=== PATIENT | female | born 1980 | race Caucasian/White ===

== ENCOUNTER 2022-05-06 22:17 | Emergency (ER) | payer MEDICAID, SELFPAY ==
[2022-05-06 22:30] VITALS: BP 127/80; PULSE 90; RESP 17; TEMP 36.7; O2SAT 98; BMI 31.7
--- NOTE | 2022-05-06 22:38 | W.ED.ABDPA2 ---
HPI - Abdominal Pain General: Chief Complaint: Abdominal Pain Stated Complaint: low abd pain Time Seen by Provider: 05/06/22 22:38 History of Present Illness: 42-year-old female comes in today for complaints of lower abdominal pain and discomfort. Patient reported constipation for 1 week now. Patient has had small bowel movement but no relieving stools. Patient appears in no pain. Patient appears nontoxic. Patient denies any chronic medical problems. Associated Symptoms: Reports constipation; Denies fever(s) Review of Systems Const: Denies: fever(s) GI: Reports: constipation Physical Exam Const: COMMON NORMALS: alert HENMT: COMMON NORMALS: normocephalic HEAD & SCALP: normocephalic Neck/C-Spine: COMMON NORMALS: full ROM Resp: COMMON NORMALS: normal respiratory effort and clear to auscultation bilaterally AUSCULTATION: clear to auscultation bilaterally Cardio: COMMON NORMALS: regular rate and regular rhythm RATE: regular rate RHYTHM: regular rhythm GI: COMMON NORMALS: Soft to palpation PALPATION: Yes Soft to palpation and No Tenderness to palpation present (GI) Extremity: COMMON NORMALS: normal to inspection Neuro: SENSORIUM/ORIENTATION: Yes alert Skin: COMMON NORMALS: turgor normal GENERAL SKIN EXAM: turgor normal Course Vital Signs: Vital signs: Vital Signs Temperature 98.0 F 05/06/22 22:30 Pulse Rate 90 05/06/22 22:30 Respiratory Rate 17 05/06/22 22:30 Blood Pressure 127/80 05/06/22 22:30 Pulse Oximetry 98 05/06/22 22:30 Oxygen Delivery Me thod 05/06/22 22:30 MDM - Abdominal Pain Medical Decision Making Patient came in tonight for complaints of abdominal discomfort and constipation. Patient reports no significant pain but mild distress. Patient denies any blood in vomit or stool. Patient appears nontoxic. Abdomen soft and nontender. With some hyperactive bowel sounds. Differential diagnosis includes not limited to constipation, fecal impaction, bowel obstruction. KUB did not note any signs of bowel obstruction or significant fecal impaction. Patient was given a dose of milk of magnesia in the ER was instructed use of milk of magnesia 30 mL twice a day until good results along with MiraLAX 4 doses per day. Discussed with patient that she will have very loose stools until she has completely passed on the constipation. Also discussing her dietary changes and fluid needs while doing a bowel cleanout. Then suggested follow-up with primary care for further evaluation and possible colonoscopy. Lab Data Labs/Radiology: Radiology Impressions KUB X-Ray 05/06/22 22:40 IMPRESSION: Moderate constipation without bowel dilation to indicate obstruction. Discharge Plan Discharge Patient Disposition: Home Clinical Impression: Constipation Qualifiers: Constipation type: unspecified constipation type Qualified Code(s): K59.00 - Constipation, unspecified Condition: Stable Prescriptions: New Miralax 17 gram/dose powder 17 g PO QID PRN (Reason: constipation) Qty: 510 0RF Milk of Magnesia 400 mg/5 mL suspension 30 ml PO BID PRN (Reason: constipation) Qty: 355 0RF Discharge Orders: Discharge ED (Routine); Ordered 05/06/22 Ordered By: Leo Valiente Referrals: Beena Dupree FNP [Primary Care Provider] - Discharge Diet: Usual diet Discharge Activity: Increase activity as tolerated Patient Instructions: Constipation (DC) Activity Restrictions/Additional Instructions: Continue with MiraLAX 17 g 4 times a day until good results for constipation. Use milk of magnesia 30 mL twice a day for laxative effect. Be sure to drink at least 2 L of liquids a day including an electrolyte solution while cleaning out. Eat a healthy diet with plenty of fresh fruits and vegetables and fibrous grains. Follow-up with primary care for further instructions regarding constipation. Return to ER for worsening symptoms such as severe abdominal pain, blood in vomit or stool, fever greater than 100.4, or new concerns. Coding Level of Care Code ED Emergency Room Physician Assistant for Odalis Fwd Exam Comprehensive
--- NOTE | 2022-05-06 22:40 | XRR_ITS ---
PROCEDURE INFORMATION: Exam: XR Abdomen Exam date and time: 05/06/2022 11:48 PM Age: 42 years old Clinical indication: Abdominal pain; Acute; Additional info: Constipation TECHNIQUE: Imaging protocol: Radiologic exam of the abdomen. Views: Frontal supine view of the abdomen. 1 View. COMPARISON: CR XR KUB [id number] 04/22/2022 4:32 PM FINDINGS: Gastrointestinal tract: Moderate constipation without bowel dilation to indicate obstruction. Bones/joints: Unremarkable. XR/XR KUB [id number] IMPRESSION: Moderate constipation without bowel dilation to indicate obstruction.
[2022-05-06] MEDS: magnesium hydroxide 30 mL UDC PO (23:12)
[2022-05-06 23:29] VITALS: BP 127/80; PULSE 90; RESP 17; TEMP 36.7; O2SAT 98
== END 2022-05-06 23:29 | disposition home or self-care (01) ==
PROVIDERS: Emergency Provider Nurse Practitioner Family; PCP Nurse Practitioner Family
DX: K59.00 Constipation, unspecified (principal)
CPT/HCPCS: 74018; 99283

== ENCOUNTER → 2023-07-21 09:49 | Outpatient (BNVA) | payer BC, MEDICAID, SELFPAY | PROVIDERS: PCP Nurse Practitioner Family; Referring Provider Electrodiagnostic Medicine; Visit Provider Nurse Practitioner | DX: M79.641 Pain in right hand (principal); M77.11 Lateral epicondylitis, right elbow; R29.898 Other symptoms and signs involving the musculoskeletal system; R20.2 Paresthesia of skin; M77.8 Other enthesopathies, not elsewhere classified | CPT/HCPCS: 73110; 73130 ==

== ENCOUNTER 2024-01-23 19:46 | Emergency (ER) | payer BC, MEDICAID, SELFPAY ==
--- NOTE | 2024-01-23 19:47 | ECG_ITS ---
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 Measurements Intervals [place] Rate: 75 P: 53 MI: 127 QRS: -55 QRSD: 102 T: 62 QT: 381 QTc: 426 Interpretive Statements SINUS RHYTHM INCOMPLETE RIGHT BUNDLE BRANCH BLOCK [90+ ms QRS DURATION, TERMINAL R IN V1/V2, 40+ ms S IN I/aVL/V4/V5/V6] LEFT ANTERIOR FASCICULAR BLOCK [QRS AXIS <= -45, QR IN I, RS IN II] No previous ECG available for comparison Electronically Signed On 01-24-2024 7:59:38 CDT by Luis Antonio Martinez M.D. [email or web address] ridge [facility].[email or web address]/store/[id number]
[2024-01-23 19:52] VITALS: BP 150/77; PULSE 83; RESP 16; TEMP 36.7; O2SAT 100; BMI 31.1
--- NOTE | 2024-01-23 22:04 | ECG_ITS ---
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 Measurements Intervals [place] Rate: 65 P: 53 MD: 144 QRS: -16 QRSD: 94 T: 58 QT: 409 QTc: 428 Interpretive Statements SINUS RHYTHM INCOMPLETE RIGHT BUNDLE BRANCH BLOCK [90+ ms QRS DURATION, TERMINAL R IN V1/V2, 40+ ms S IN I/aVL/V4/V5/V6] Compared to ECG 01/23/2024 19:47:26 Left anterior fascicular block no longer present Electronically Signed On 01-24-2024 7:59:26 CDT by Luis Antonio Martinez M.D. [id number]
--- NOTE | 2024-01-23 22:04 | XRR_ITS ---
PROCEDURE INFORMATION: Exam: XR Chest Exam date and time: 01/23/2024 10:07 PM Age: 43 years old Clinical indication: Chest pressure; Patient HX: Chest pain; Left arm pain TECHNIQUE: Imaging protocol: Radiologic exam of the chest. Views: 1 view. COMPARISON: CR XR KUB [id number] 05/06/2022 11:48 PM FINDINGS: Lungs: The lungs are adequately expanded. No focal consolidations or pulmonary edema. Pleural spaces: No pleural effusions or pneumothorax. Heart/Mediastinum: No cardiomegaly. Bones/joints: No acute fractures. XR/XR chest 1V portable [id number] IMPRESSION: No acute pulmonary disease.
[2024-01-23 22:19] LABS: Basophils % 0.4 %; Eosinophils # 0.2 10^3/uL (0.0-0.8); Eosinophils % 2.1 %; Hematocrit 39.8 % (36-47); Lymphocytes # 1.7 10^3/uL (0.8-4.8); Lymphocytes % 20.8 %; Mean Corpuscular HGB Conc 32.9 g/dL (30-55); Mean Corpuscular Hemoglobin 29.2 pg (27-33); Mean Corpuscular Volume 88.8 fl (85-98); Mean Platelet Volume 9.2 fL (7.4-10.4); Monocytes # 0.6 10^3/uL (0.2-0.9); Neutrophils % 69.5 %; Nucleated Red Blood Cells % 0 %; Platelet Count 163 10^3/cmm (157-399); Red Blood Count 4.48 10^6/uL (3.85-5.65); Red Cell Distribution Width 12.6 % (12.1-15.1); White Blood Count 8.19 10^3/uL (3.29-11.43)
[2024-01-23 22:40] VITALS: BP 120/64; PULSE 68; O2SAT 96
[2024-01-23 22:46] LABS: Troponin(5th) Baseline < 6 ng/L (0-10)
[2024-01-23 22:48] LABS: Alanine Aminotransferase 14 U/L (0-33); Albumin Level 4.6 g/dL (3.5-5.2); Alkaline Phosphatase 83 U/L (35-105); Aspartate Amino Transferase 16 U/L (0-32); Blood Urea Nitrogen 11 mg/dL (6-20); Calcium 9.2 mg/dL (8.5-10.5); Carbon Dioxide 25 mmol/L (22-29); Creatinine Clr Calc Pharmacy 96.8812; Globulin 2.4 g/dL (1.3-4.6); Glomerular Filtration Rate 91.8 mL/min (90-130); Glucose 104 mg/dL (65-115); Total Bilirubin 0.2 mg/dL (0.15-1.2)
--- NOTE | 2024-01-23 23:09 | W.ED.CHESTPA ---
HPI - Chest Pain General: Chief Complaint: Chest Pain Stated Complaint: Chest Pains\Left Arm Pain Time Seen by Provider: 01/23/24 22:22 History of Present Illness: Patient presents to the ER with complaints of left-sided intermittent sharp stabbing chest pain that travels into the left arm. This is worse when taking a big deep breath. Patient denies any shortness of breath diaphoresis nausea vomiting. Patient denies any heart problems. Related Data Previous Rx's Medication Instructions Recorded magnesium hydroxide 400 mg/5 mL 30 ml PO BID PRN constipation #355 05/06/22 oral suspension (Milk of Magnesia) mL polyethylene glycol 3350 17 17 g PO QID PRN constipation #510 05/06/22 gram/dose oral powder (Miralax) grams Tennis elbow strap #1 ea 07/21/23 celecoxib 100 mg capsule (Celebrex) 100 mg PO BID right tennis elbow 07/21/23 30 days #60 caps Allergies Allergy/AdvReac Type Severity Reaction Status Date / Time No Known Allergies Allergy Verified 10/14/23 14:33 Review of Systems General: Reports: 10 or more systems reviewed and unremarkable except in HPI and below PFSH ED PFSH: Medical History Tendinitis of right forearm Positive Tinel's sign Fall at home 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 Lateral epicondylitis of right elbow Female Reproductive History: Date of last menstrual period: 01/23/24 Physical Exam Const: COMMON NORMALS: no acute distress, average body habitus, patient oriented x3, no limitations, healthy appearing, alert and well nourished HENMT: COMMON NORMALS: normocephalic, atraumatic, hearing grossly normal bilaterally, external ears normal, Normal external nose present and moist oral mucous membranes HEAD & SCALP: normocephalic and atraumatic NOSE: Normal external nose present EXTERNAL EAR: Yes external ears normal Neck/C-Spine: COMMON NORMALS: no JVD Chest: COMMONS NORMALS: normal inspection of the chest and normal palpation of entire chest wall Resp: COMMON NORMALS: normal respiratory effort, No retractions, No use of accessory muscles and clear to auscultation bilaterally AUSCULTATION: clear to auscultation bilaterally Cardio: COMMON NORMALS: no JVD, regular rate, regular rhythm, S1 normal heart sound present, S2 normal heart sound present, No gallops present (Cardio), No clicks present (Cardio), No murmurs present (Cardio) and No rub (Cardio) RATE: regular rate RHYTHM: regular rhythm HEART SOUNDS: S1 normal heart sound present and S2 normal heart sound present GI: COMMON NORMALS: Normal to inspection, nondistended, normoactive bowel sounds present, Soft to palpation, non-tender, No hepatosplenomegaly present and no masses PALPATION: Yes Soft to palpation and Yes No hepatosplenomegaly present Neuro: COMMON NORMALS: patient oriented x3 SENSORIUM/ORIENTATION: Yes alert Course Vital Signs: Vital signs: Vital Signs Temperature 98.1 F 01/23/24 19:52 Pulse Rate 68 01/23/24 22:40 Respiratory Rate 16 01/23/24 19:52 Blood Pressure 105/63 01/23/24 23:18 Pulse Oximetry 97 01/23/24 23:18 Oxygen Delivery Me thod Room Air 01/23/24 19:52 MDM - Chest Pain Medical Decision Making Patient had lab work that included CBC CMP troponin, chest x-ray all which was benign. Patient was not in any distress and is nontoxic in appearance. His results was discussed with the patient and patient will be discharged home. Differential Diagnosis Unlikely acute massive pulmonary embolism, acute respiratory failure, acute myocardial infarction, cardiac arrest or sudden cardiac Medical Records I reviewed the patient's medical records. Lab Data I reviewed the patient's lab results. 01/23/24 21:11 01/23/24 21:11 Radiology Impressions Chest X-Ray 01/23/24 22:04 IMPRESSION: No acute pulmonary disease. Laboratory Results WBC 8.19 10^3/uL (3.29-11.43) 01/23/24 21:11 RBC 4.48 10^6/uL (3.85-5.65) 01/23/24 21:11 Hgb 13.10 g/dL (11.27-16.99) 01/23/24 21:11 Hct 39.8 % (36-47) 01/23/24 21:11 MCV 88.8 fl (85-98) 01/23/24 21:11 MCH 29.2 pg (27-33) 01/23/24 21:11 MCHC 32.9 g/dL (30-55) 01/23/24 21:11 RDW 12.6 % (12.1-15.1) 01/23/24 21:11 Plt Count 163 10^3/cmm (157-399) 01/23/24 21:11 MPV 9.2 fL (7.4-10.4) 01/23/24 21:11 Neut % (Auto) 69.5 % 01/23/24 21:11 Lymph % (Auto) 20.8 % 01/23/24 21:11 [place]ay % (Auto) 7.0 % 01/23/24 21:11 Eos % (Auto) 2.1 % 01/23/24 21:11 Baso % (Auto) 0.4 % 01/23/24 21:11 Neut # (Auto) 5.70 10^3/uL (1.8-7.7) 01/23/24 21:11 Lymph # (Auto) 1.7 10^3/uL (0.8-4.8) 01/23/24 21:11 [place]ay # (Auto) 0.6 10^3/uL (0.2-0.9) 01/23/24 21:11 Eos # (Auto) 0.2 10^3/uL (0.0-0.8) 01/23/24 21:11 Baso # (Auto) 0.0 10^3/uL (0.0-0.1) 01/23/24 21:11 Nucleated RBC % (auto) 0 % 01/23/24 21:11 Nucleated RBCs # 0.0 /100WBC 01/23/24 21:11 Sodium 142 mmol/L (136-145) 01/23/24 21:11 Potassium 4.2 mmol/L (3.5-5.1) 01/23/24 21:11 Chloride 104 mmol/L (98-107) 01/23/24 21:11 Carbon Dioxide 25 mmol/L (22-29) 01/23/24 21:11 Anion Gap 17.2 (5-19) 01/23/24 21:11 BUN 11 mg/dL (6-20) 01/23/24 21:11 Creatinine 0.7 mg/dL (0.5-0.9) 01/23/24 21:11 GFR Calculation 91.8 mL/min (90-130) 01/23/24 21:11 Glucose 104 mg/dL (65-115) 01/23/24 21:11 Calculated Osmolality 294 mOsm/kg (285-295) 01/23/24 21:11 Calcium 9.2 mg/dL (8.5-10.5) 01/23/24 21:11 Total Bilirubin 0.2 mg/dL (0.15-1.2) 01/23/24 21:11 AST 16 U/L (0-32) 01/23/24 21:11 ALT 14 U/L (0-33) 01/23/24 21:11 Alkaline Phosphatase 83 U/L (35-105) 01/23/24 21:11 Troponin T Baseline < 6 ng/L (0-10) 01/23/24 21:11 Total Protein 7.0 g/dL (6.6-8.7) 01/23/24 21:11 Albumin 4.6 g/dL (3.5-5.2) 01/23/24 21:11 Globulin 2.4 g/dL (1.3-4.6) 01/23/24 21:11 All radiology interpretation(s) finalized by discharge Discharge Plan Discharge Patient Disposition: Home Clinical Impression: Atypical chest pain Condition: Stable Prescriptions: No Action (DME) Tennis elbow strap See Rx Instructions .Route .MEDSUPPLY Qty: 1 0RF Rx Instructions: As directed celecoxib [Celebrex] 100 mg capsule 100 mg PO BID 30 Days Qty: 60 1RF Miralax 17 gram/dose powder 17 g PO QID PRN (Reason: constipation) Qty: 510 0RF Milk of Magnesia 400 mg/5 mL suspension 30 ml PO BID PRN (Reason: constipation) Qty: 355 0RF Discharge Orders: Discharge ED (Routine); Ordered 01/23/24 Ordered By: Abdelrahman Moore Referrals: Lance Ospina DO [Primary Care Provider] - 1 week Patient Instructions: Chest Pain - Noncardiac Activity Restrictions/Additional Instructions: Evaluation in the ER that included physical exam, lab work, chest x-ray, EKG did not reveal any acute coronary cause of your chest pain. Your chest pain is felt to be noncardiac in nature. Please follow-up with your family practitioner in the next 7 to 10 days for further evaluation and treatment as needed. If your chest pain changes or worsens please feel free to return to the ER. Coding Level of Care Code ED Fiberglass Insulation Installer for Odalis Hidalgo
[2024-01-23 23:18] VITALS: BP 105/63; O2SAT 97
[2024-01-23 23:47] LABS: Anion Gap 17.2 (5-19); Chloride 104 mmol/L (98-107); Osmolality Calculated 294 mOsm/kg (285-295); Potassium 4.2 mmol/L (3.5-5.1); Sodium 142 mmol/L (136-145)
--- NOTE | 2024-01-24 00:04 | ECG_ITS ---
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 Measurements Intervals [place] Rate: 69 P: 55 SC: 143 QRS: 7 QRSD: 95 T: 66 QT: 394 QTc: 422 Interpretive Statements SINUS RHYTHM INCOMPLETE RIGHT BUNDLE BRANCH BLOCK [90+ ms QRS DURATION, TERMINAL R IN V1/V2, 40+ ms S IN I/aVL/V4/V5/V6] Compared to ECG 01/23/2024 19:47:26 Left anterior fascicular block no longer present Electronically Signed On 01-24-2024 8:00:01 CDT by Luis Antonio Martinez M.D. [id number]
[2024-01-24 00:08] VITALS: BP 109/69; PULSE 72; O2SAT 99
[2024-01-24 00:12] LABS: Troponin 5 2HR Delta 0.00001 ABS# (0-10)
== END 2024-01-24 00:10 | disposition home or self-care (01) ==
PROVIDERS: Emergency Provider Emergency Medicine; PCP Electrodiagnostic Medicine
DX: R07.89 Other chest pain (principal)
CPT/HCPCS: 71045; 80053; 84484; 85025; 93005; 99285

== ENCOUNTER → 2024-04-15 15:47 | Outpatient (BNVA) | payer BC, MEDICAID, SELFPAY | PROVIDERS: PCP Electrodiagnostic Medicine; Visit Provider Nurse Practitioner Women's Health | DX: N93.9 Abnormal uterine and vaginal bleeding, unspecified (principal) | CPT/HCPCS: 82670; 83001; 83002; 84146; 84443 ==

== ENCOUNTER → 2024-05-06 11:07 | Outpatient (BNVA) | payer BC, MEDICAID, SELFPAY | PROVIDERS: PCP Electrodiagnostic Medicine; Visit Provider Nurse Practitioner Women's Health | DX: N93.9 Abnormal uterine and vaginal bleeding, unspecified (principal) | CPT/HCPCS: 76830 ==

== ENCOUNTER → 2024-09-06 10:25 | Outpatient (BNVA) | payer BC, MEDICAID, SELFPAY | PROVIDERS: PCP Electrodiagnostic Medicine; Visit Provider Obstetrics & Gynecology | DX: N93.9 Abnormal uterine and vaginal bleeding, unspecified (principal); Z01.419 Encounter for gynecological examination (general) (routine) without abnormal findings | CPT/HCPCS: 81025; 87624; 88305 ==

== ENCOUNTER 2024-09-26 15:30 | Emergency (ER) | payer BC, MEDICAID, SELFPAY ==
[2024-09-26 15:33] VITALS: BP 127/94; PULSE 107; RESP 17; TEMP 36.5; O2SAT 99; BMI 32.1
--- NOTE | 2024-09-26 15:38 | USR_ITS ---
PROCEDURE INFORMATION: Exam: US Pelvis, Transvaginal, Non-Obstetric Exam date and time: 09/26/2024 5:17 PM Age: 44 years old Clinical indication: Other: Bleeding; She has an iud; Additional info: Vaginal bleeding TECHNIQUE: Imaging protocol: Real-time transvaginal pelvic (non-obstetric) ultrasound with image documentation. Transvaginal imaging was used for better evaluation of the endometrium, adnexa, and/or cervix. COMPARISON: US transvaginal [id number] 05/06/2024 11:14 AM FINDINGS: Uterus: Intrauterine device is present. The uterus measures 4.1 x 5.3 cm. Endometrial thickness is 9 mm. Nabothian cysts are present. Right ovary/adnexa: Preserved flow to the right ovary. There are right-sided ovarian cysts with imperceptible izquierdo without suspicious echogenic nodular foci with the largest measuring 4.0 x 3.0 x 4.9 cm. Left ovary/adnexa: Preserved flow to the left ovary. Multiple cysts within the left ovary some of which demonstrate either septations or apposition of cyst izquierdo. Urinary bladder: Urinary bladder is limited. Intraperitoneal space: No free fluid. US/US transvaginal [id number] IMPRESSION: 1. Unremarkable appearance of the uterus. Intrauterine device is present 2. Bilateral ovarian cystic changes that demonstrate an O rads 2 appearance. There is preserved flow to both ovaries.
--- NOTE | 2024-09-26 15:53 | ED_ITS ---
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 She states that over the last 2 days she has had increased bleeding going through multiple pads. She denies any pain denies any lightheadedness denies any worse improved factors. Associated symptoms: Deny abdominal pain, headache(s) or nausea Related Data Home Medications ?Medication ?Instructions ?Recorded ?Confirmed cyclobenzaprine 10 mg tablet 10 mg PO TID 09/26/24 prednisone 20 mg tablet 80 mg PO QAM 09/26/24 Previous Rx's ?Medication ?Instructions ?Recorded propranolol 10 mg tablet 10 mg PO BID #60 tabs Allergies Allergy/AdvReac Type Severity Reaction Status Date / Time No Known Allergies Allergy Verified 09/20/24 07:44 Review of Systems 2 Const: Denies: fever(s), chills, body aches or change in appetite ENMT: Denies: throat pain or dental pain Card: Denies: chest pain Resp: Denies: dyspnea GI: Denies: abdominal pain, nausea, vomiting or diarrhea : Reports: vaginal bleeding Musc: Denies: neck pain or back pain Skin/Breast: Denies: rash Neuro: Denies: headache(s) PFSH ED 2 PFSH: Medical History Tendinitis of right forearm Positive Tinel's sign Fall at home 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 Lateral epicondylitis of right elbow Family History Grandmother Uterine cancer Ovarian cancer Diabetes Father Heart disease Diabetes Grandfather Diabetes Social History Smoking and tobacco/nicotine status: never used tobacco/nicotine Physical Exam 2 Const: COMMON NORMALS: no acute distress, patient oriented x3 and healthy appearing HENMT: COMMON NORMALS: normocephalic and atraumatic HEAD & SCALP: n ormocephalic and atraumatic Eye: COMMON NORMALS: conjunctivae normal CONJUNCTIVA: Yes conjunctivae normal Neck/C-Spine: COMMON NORMALS: full ROM and supple Chest: COMMONS NORMALS: normal inspection of the chest Resp: COMMON NORMALS: normal respiratory effort, No retractions, No use of accessory muscles and clear to auscultation bilaterally AUSCULTATION: clear to auscultation bilaterally Cardio: COMMON NORMALS: regular rate, regular rhythm and No murmurs present (Cardio) RATE: regular rate RHYTHM: regular rhythm GI: COMMON NORMALS: Normal to inspection, nondistended, normoactive bowel sounds present, Soft to palpation, non-tender and no masses PALPATION: Yes Soft to palpation Extremity: COMMON NORMALS: normal to inspection and full ROM Neuro: COMMON NORMALS: patient oriented x3, moves all extremities and no focal motor deficits Psych: COMMON NORMALS: mental status grossly normal, Normal thought process present and cooperative THOUGHT PROCESS: Normal thought process present Skin: COMMON NORMALS: no rashes or lesions noted and no wounds GENERAL SKIN EXAM: no rashes or lesions noted Course 2 Vital Signs: Vital signs: Vital Signs Temperature 97.7 F 09/26/24 15:33 Pulse Rate 96 09/26/24 16:09 Respiratory Rate 16 09/26/24 16:09 Blood Pressure 128/86 09/26/24 16:09 Pulse Oximetry 99 09/26/24 16:09 Oxygen Delivery Me thod Room Air 09/26/24 16:09 MDM - Female Medical Decision Making Patient presents with vaginal bleeding hemoglobin here is normal ultrasound showed no acute findings she stable for discharge follow-up PCP return if worsening. Medical Records I reviewed the patient's medical records. Lab Data I reviewed the patient's lab results. 09/26/24 15:55 09/26/24 15:55 Radiology Impressions Transvaginal US 09/26/24 15:38 IMPRESSION: 1. Unremarkable appearance of the uterus. Intrauterine device is present 2. Bilateral ovarian cystic changes that demonstrate an O rads 2 appearance. There is preserved flow to both ovaries. Laboratory Results WBC 9.28 10^3/uL (3.29-11.43) 09/26/24 15:55 RBC 4.33 10^6/uL (3.85-5.65) 09/26/24 15:55 Hgb 12.60 g/dL (11.27-16.99) 09/26/24 15:55 Hct 38.2 % (36-47) 09/26/24 15:55 MCV 88.2 fl (85-98) 09/26/24 15:55 MCH 29.1 pg (27-33) 09/26/24 15:55 MCHC 33.0 g/dL (30-55) 09/26/24 15:55 RDW 12.8 % (12.1-15.1) 09/26/24 15:55 Plt Count 166 10^3/cmm (157-399) 09/26/24 15:55 MPV 9.3 fL (7.4-10.4) 09/26/24 15:55 Neut % (Auto) 72.6 % 09/26/24 15:55 Lymph % (Auto) 18.4 % 09/26/24 15:55 [place] % (Auto) 6.1 % 09/26/24 15:55 Eos % (Auto) 2.5 % 09/26/24 15:55 Baso % (Auto) 0.2 % 09/26/24 15:55 Neut # (Auto) 6.73 10^3/uL (1.8-7.7) 09/26/24 15:55 Lymph # (Auto) 1.7 10^3/uL (0.8-4.8) 09/26/24 15:55 [place] # (Auto) 0.6 10^3/uL (0.2-0.9) 09/26/24 15:55 Eos # (Auto) 0.2 10^3/uL (0.0-0.8) 09/26/24 15:55 Baso # (Auto) 0.0 10^3/uL (0.0-0.1) 09/26/24 15:55 Nucleated RBC % (auto) 0 % 09/26/24 15: Nucleated RBCs # 0.0 /100WBC 09/26/24 15:55 Sodium 136 mmol/L (136-145) 09/26/24 15:55 Potassium 3.9 mmol/L (3.5-5.1) 09/26/24 15:55 Chloride 103 mmol/L (98-107) 09/26/24 15:55 Carbon Dioxide 23 mmol/L (22-29) 09/26/24 15:55 Anion Gap 13.9 (5-19) 09/26/24 15:55 BUN 10 mg/dL (6-20) 09/26/24 15:55 Creatinine 0.6 mg/dL (0.5-0.9) 09/26/24 15:55 GFR Calculation 109.1 mL/min (90-130) 09/26/24 15:55 Glucose 107 mg/dL (65-115) 09/26/24 15:55 Calculated Osmolality 282 mOsm/kg (285-295) L 09/26/24 15:55 Calcium 8.8 mg/dL (8.5-10.5) 09/26/24 15:55 Total Bilirubin 0.2 mg/dL (0.15-1.2) 09/26/24 15:55 AST 15 U/L (0-32) 09/26/24 15:55 ALT 15 U/L (0-33) 09/26/24 15:55 Alkaline Phosphatase 71 U/L (35-105) 09/26/24 15:55 Total Protein 7.0 g/dL (6.6-8.7) 09/26/24 15:55 Albumin 4.4 g/dL (3.5-5.2) 09/26/24 15:55 Globulin 2.6 g/dL (1.3-4.6) 09/26/24 15:55 All radiology interpretation(s) finalized by discharge Discharge Plan Discharge Patient Disposition: Home Clinical Impression: Abnormal uterine bleeding (AUB) Condition: Stable Prescriptions: No Action propranolol 10 mg tablet 10 mg PO BID Qty: 60 3RF Rx Instructions: take one tab twice daily Mirena 21 mcg/24hr (up to 8 yrs) 52 mg intrauterine device 1 device intrauterine ONCE Qty: 1 0RF cyclobenzaprine 10 mg tablet 10 mg PO TID prednisone 20 mg tablet 80 mg PO QAM Discharge Orders: Discharge ED (Routine); Ordered 09/26/24 Ordered By: Karla Jauregui Referrals: Lance Ospina DO [Primary Care Provider] - Discharge Diet: Advance as tolerated Discharge Activity: Resume usual activity Patient Instructions: Abnormal (Dysfunctional) Uterine Bleeding (ED) Print Language: Irish Coding Level of Care Code ED Commercial Lines Account Manager for Chg Fwd
[2024-09-26 16:07] LABS: Basophils % 0.2 %; Eosinophils # 0.2 10^3/uL (0.0-0.8); Eosinophils % 2.5 %; Hematocrit 38.2 % (36-47); Lymphocytes # 1.7 10^3/uL (0.8-4.8); Lymphocytes % 18.4 %; Mean Corpuscular Hemoglobin 29.1 pg (27-33); Mean Corpuscular Volume 88.2 fl (85-98); Mean Platelet Volume 9.3 fL (7.4-10.4); Monocytes # 0.6 10^3/uL (0.2-0.9); Monocytes % 6.1 %; Neutrophils # 6.73 10^3/uL (1.8-7.7); Neutrophils % 72.6 %; Nucleated Red Blood Cells % 0 %; Platelet Count 166 10^3/cmm (157-399); Red Blood Count 4.33 10^6/uL (3.85-5.65); Red Cell Distribution Width 12.8 % (12.1-15.1); White Blood Count 9.28 10^3/uL (3.29-11.43)
[2024-09-26 16:09] VITALS: BP 128/86; PULSE 96; RESP 16; O2SAT 99
[2024-09-26 16:29] LABS: Alanine Aminotransferase 15 U/L (0-33); Albumin Level 4.4 g/dL (3.5-5.2); Alkaline Phosphatase 71 U/L (35-105); Anion Gap 13.9 (5-19); Aspartate Amino Transferase 15 U/L (0-32); Blood Urea Nitrogen 10 mg/dL (6-20); Calcium 8.8 mg/dL (8.5-10.5); Carbon Dioxide 23 mmol/L (22-29); Chloride 103 mmol/L (98-107); Creatinine Clr Calc Pharmacy 113.6062; Globulin 2.6 g/dL (1.3-4.6); Glomerular Filtration Rate 109.1 mL/min (90-130); Glucose 107 mg/dL (65-115); Osmolality Calculated 282 mOsm/kg (285-295); Potassium 3.9 mmol/L (3.5-5.1); Sodium 136 mmol/L (136-145); Total Bilirubin 0.2 mg/dL (0.15-1.2)
[2024-09-26 16:30] VITALS: BP 126/84; PULSE 88; O2SAT 98
[2024-09-26 17:00] VITALS: BP 109/71; PULSE 87; O2SAT 99
[2024-09-26 18:16] VITALS: BP 111/76; PULSE 88; O2SAT 99
== END 2024-09-26 18:20 | disposition home or self-care (01) ==
PROVIDERS: Emergency Provider Emergency Medicine; PCP Electrodiagnostic Medicine
DX: N93.8 Other specified abnormal uterine and vaginal bleeding (principal)
CPT/HCPCS: 36415; 76830; 80053; 85025; 99284

== ENCOUNTER 2024-09-28 17:45 | Observation (INO) | payer BC, MEDICAID, SELFPAY ==
[2024-09-28] VITALS (12 sets, daily range): BP systolic 97–129; BP diastolic 66–86; PULSE 87–119; RESP 14–20; TEMP 35.1–37.1; O2SAT 97–100; BMI 32.1
[2024-09-28 18:31] LABS: Basophils % 0.6 %; Eosinophils # 0.2 10^3/uL (0.0-0.8); Eosinophils % 2.4 %; Hematocrit 29.1 % (36-47); Lymphocytes # 1.7 10^3/uL (0.8-4.8); Lymphocytes % 27.3 %; Mean Corpuscular Hemoglobin 28.6 pg (27-33); Mean Corpuscular Volume 89.5 fl (85-98); Mean Platelet Volume 9.8 fL (7.4-10.4); Monocytes # 0.4 10^3/uL (0.2-0.9); Monocytes % 6.2 %; Neutrophils # 4.02 10^3/uL (1.8-7.7); Neutrophils % 63.3 %; Nucleated Red Blood Cells % 0 %; Platelet Count 173 10^3/cmm (157-399); Red Blood Count 3.25 10^6/uL (3.85-5.65); Red Cell Distribution Width 12.8 % (12.1-15.1); White Blood Count 6.34 10^3/uL (3.29-11.43)
[2024-09-28 18:48] LABS: Alanine Aminotransferase 14 U/L (0-33); Albumin Level 4.1 g/dL (3.5-5.2); Alkaline Phosphatase 62 U/L (35-105); Anion Gap 16.8 (5-19); Aspartate Amino Transferase 14 U/L (0-32); Blood Urea Nitrogen 11 mg/dL (6-20); Carbon Dioxide 21 mmol/L (22-29); Chloride 105 mmol/L (98-107); Creatinine Clr Calc Pharmacy 113.6062; Globulin 2.5 g/dL (1.3-4.6); Glomerular Filtration Rate 109.1 mL/min (90-130); Glucose 101 mg/dL (65-115); Osmolality Calculated 288 mOsm/kg (285-295); Potassium 3.8 mmol/L (3.5-5.1); Sodium 139 mmol/L (136-145); Total Bilirubin 0.2 mg/dL (0.15-1.2); Total Protein 6.6 g/dL (6.6-8.7)
[2024-09-28] MEDS: tranexamic acid 1,000 MG/100 ML PREMIX 600 MG IV (18:52)
[2024-09-28] MEDS: sodium chloride 0.9% 1,000 ML 999 ML IV (18:52)
--- NOTE | 2024-09-28 19:19 | ECG_ITS ---
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 Measurements Intervals [place] Rate: 96 P: 142 [place]: 158 QRS: -27 QRSD: 89 T: 103 QT: 353 QTc: 447 Interpretive Statements ECTOPIC ATRIAL RHYTHM POSSIBLE LEFT ATRIAL ENLARGEMENT [-0.1mV P-WAVE IN V1/V2] LOW QRS VOLTAGE IN PRECORDIAL LEADS [QRS DEFLECTION < 1.0 mV IN CHEST LEADS] POSSIBLE RIGHT VENTRICULAR CONDUCTION DELAY [RSR (QR) IN V1/V2] POSSIBLE SEPTAL MYOCARDIAL INFARCTION , OF INDETERMINATE AGE [30 ms Q WAVE IN V1/V2] ST-T changes in the high lateral leads suggesting recent lateral wall IL Compared to ECG 01/23/2024 23:13:51 Ectopic atrial rhythm now present Low QRS voltage now present Myocardial infarct finding now present.Sinus rhythm no longer present Incomplete right bundle-branch block no longer present Electronically Signed On 09-29-2024 21:31:28 CDT by Jose F Brown M.D. [id number] [id number]
--- NOTE | 2024-09-28 19:22 | ED_ITS ---
HPI - Syncope 2 General: Chief Complaint: Syncope Stated Complaint: vaginal bleeding since friday, high hr Time Seen by Provider: 09/28/24 18:04 History of Present Illness: Patient is an anxious 44-year-old female seen for ongoing vaginal bleeding after having Mirena placed. She was seen in the emergency department several days ago at which time hemoglobin was found to be stable at 12.6 despite bleeding. She states that the bleeding has been ongoing including clots the size of her fist and she has felt near syncopal throughout the day multiple times. She also describes a feeling of shortness of breath. She feels that her arms and feet are tingling and her notes that her extremities are pale. To her knowledge there is no family history of bleeding disorders. She has never had excessive bleeding with childbirth x 3. She takes no medications and has no other major medical problems. 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 Lateral epicondylitis of right elbow Family History Grandmother Uterine cancer Ovarian cancer Diabetes Father Heart disease Diabetes Grandfather Diabetes Social History Smoking and tobacco/nicotine status: never used tobacco/nicotine Physical Exam 2 Const: COMMON NORMALS: patient oriented x3 and alert GENERAL APPEARANCE: a nxious HENMT: COMMON NORMALS: normocephalic and atraumatic HEAD & SCALP: n ormocephalic and atraumatic Eye: COMMON NORMALS: Equal, round and reactive pupils present, EOMs intact bilaterally and no scleral icterus PUPIL: Yes Equal, round and reactive pupils present Resp: COMMON NORMALS: normal respiratory effort and No retractions EFFORT & INSPECTION: Yes able to speak in complete sentences and Yes tachypneic Cardio: COMMON NORMALS: regular rate, regular rhythm and No murmurs present (Cardio) RATE: regular rate and tachycardic RHYTHM: regular rhythm GI: COMMON NORMALS: Normal to inspection, nondistended, normoactive bowel sounds present, Soft to palpation and non-tender PALPATION: Yes Soft to palpation Neuro: COMMON NORMALS: patient oriented x3 SENSORIUM/ORIENTATION: Yes alert Skin: COMMON NORMALS: no rashes or lesions noted GENERAL SKIN EXAM: no rashes or lesions noted Course 2 Vital Signs: Vital signs: Vital Signs Temperature 98.7 F 09/28/24 17:51 Pulse Rate 102 H 09/28/24 21:01 Respiratory Rate 18 09/28/24 21:01 Blood Pressure 114/66 09/28/24 21:01 Pulse Oximetry 98 09/28/24 21:01 Oxygen Delivery Me thod Room Air 09/28/24 21:01 MDM - Syncope Medical Decision Making In summary, patient is a 44-year-old female seen for ongoing vaginal bleeding after having a Mirena control device placed. Hemoglobin dropped in 2 days from 12.6-9.3 and then in 2 hours in the emergency department from 9.3-7.9. She has felt lightheaded while here and had runs of tachycardia up to 150 bpm. She was typed and crossed for 2 units and given IV tranexamic acid 1000 mg after which she states bleeding has decreased significantly. I spoke with on-call TESTING PROJECTS ADMINISTRATOR, Dr. Rogel, who will consult on the case. I spoke with the hospitalist service who will admit the patient for further observation and care. Lab Data 09/28/24 20:03 09/28/24 18:24 Laboratory Results WBC 6.34 10^3/uL (3.29-11.43) 09/28/24 18:24 RBC 3.25 10^6/uL (3.85-5.65) L 09/28/24 18:24 Hgb 7.90 g/dL (11.27-16.99) L 09/28/24 20:03 Hct 24.7 % (36-47) L 09/28/24 20:03 MCV 89.5 fl (85-98) 09/28/24 18:24 MCH 28.6 pg (27-33) 09/28/24 18:24 MCHC 32.0 g/dL (30-55) 09/28/24 18:24 RDW 12.8 % (12.1-15.1) 09/28/24 18:24 Plt Count 173 10^3/cmm (157-399) 09/28/24 18:24 MPV 9.8 fL (7.4-10.4) 09/28/24 18: Neut % (Auto) 63.3 % 09/28/24 18: Lymph % (Auto) 27.3 % 09/28/24 18:24 Braxton % (Auto) 6.2 % 09/28/24 18: Eos % (Auto) 2.4 % 09/28/24 18: Baso % (Auto) 0.6 % 09/28/24 18:24 Neut # (Auto) 4.02 10^3/uL (1.8-7.7) 09/28/24 18: Lymph # (Auto) 1.7 10^3/uL (0.8-4.8) 09/28/24 18:24 Braxton # (Auto) 0.4 10^3/uL (0.2-0.9) 09/28/24 18:24 Eos # (Auto) 0.2 10^3/uL (0.0-0.8) 09/28/24 18: Baso # (Auto) 0.0 10^3/uL (0.0-0.1) 09/28/24 18: Nucleated RBC % (auto) 0 % 09/28/24 18: Nucleated RBCs # 0.0 /100WBC 09/28/24 18:24 Sodium 139 mmol/L (136-145) 09/28/24 18:24 Potassium 3.8 mmol/L (3.5-5.1) 09/28/24 18:24 Chloride 105 mmol/L (98-107) 09/28/24 18:24 Carbon Dioxide 21 mmol/L (22-29) L 09/28/24 18:24 Anion Gap 16.8 (5-19) 09/28/24 18:24 BUN 11 mg/dL (6-20) 09/28/24 18:24 Creatinine 0.6 mg/dL (0.5-0.9) 09/28/24 18:24 GFR Calculation 109.1 mL/min (90-130) 09/28/24 18:24 Glucose 101 mg/dL (65-115) 09/28/24 18:24 Calculated Osmolality 288 mOsm/kg (285-295) 09/28/24 18:24 Calcium 9.0 mg/dL (8.5-10.5) 09/28/24 18:24 Total Bilirubin 0.2 mg/dL (0.15-1.2) 09/28/24 18:24 AST 14 U/L (0-32) 09/28/24 18:24 ALT 14 U/L (0-33) 09/28/24 18:24 Alkaline Phosphatase 62 U/L (35-105) 09/28/24 18:24 Total Protein 6.6 g/dL (6.6-8.7) 09/28/24 18:24 Albumin 4.1 g/dL (3.5-5.2) 09/28/24 18:24 Globulin 2.5 g/dL (1.3-4.6) 09/28/24 18:24 Blood Type O Negative 09/28/24 18:47 Rho(D) Type Rh negative 09/28/24 18:47 Antibody Screen Negative 09/28/24 18:47 No radiology studies performed this visit EKG Data EKG 1: Interpretation: Time?1918?normal sinus rhythm, rate of 96, no ST segment elevation or depression, no T wave inversions, intervals within normal limits. QTc = 407 Critical Care Time 2 Critical Care Time: Critical Care Time: Yes Total Critical Care Time: 41 Attestation: Patient was near syncopal, tachycardic, pale, with ongoing vaginal bleeding requiring IV fluids, transonic acid, and transfusion of 2 units of packed red blood cells to stabilize. Discharge Plan Discharge Patient Disposition: Admitted As Inpatient Clinical Impression: Abnormal uterine bleeding (AUB), Syncope Condition: Stable Prescriptions: No Action propranolol 10 mg tablet 10 mg PO BID Qty: 60 3RF Rx Instructions: take one tab twice daily Mirena 21 mcg/24hr (up to 8 yrs) 52 mg intrauterine device 1 device intrauterine ONCE Qty: 1 0RF cyclobenzaprine 10 mg tablet 10 mg PO TID prednisone 20 mg tablet 80 mg PO QAM Referrals: Lance Ospina DO [Primary Care Provider] - Print Language: Yi Coding Level of Care Code ED Pharmacists for [facility]
[2024-09-28 20:07] LABS: Hematocrit 24.7 % (36-47)
[2024-09-28 21:44] LABS: HCG Quantitative < 1.00 mIU/mL
--- NOTE | 2024-09-28 21:47 | PM.CONSULT ---
Providers/Reason For Consult Consulting Physician/Specialty*: haroon Reason for Consult*: BUSTERB Attending Physician: Ted Wiseman MD Primary Care Provider: Lance Ospina DO History of Present Illness History of Present Illness Vika Cadena is a 44 year old female with a past medical history of abnormal uterine bleeding, , she has had 3 normal spontaneous vaginal deliveries, she deals with abnormal uterine bleeding, she had a Mirena recently placed by Dr. Ramos on 09/06, who presents to [facility] for abnormal uterine bleeding. Patient denies being , has not had sexual intercourse since her Mirena was placed, denies any vaginal discharge, denies any blood or black stools, does report hematuria, denies any fevers, no chills she had presented emergency room on 09/26/2024 for vaginal bleeding, transvaginal ultrasound as below, patient FINDINGS: Uterus: Intrauterine device is present. The uterus measures 4.1 x 5.3 cm. Endometrial thickness is 9 mm. Nabothian cysts are present. Right ovary/adnexa: Preserved flow to the right ovary. There are right-sided ovarian cysts with imperceptible izquierdo without suspicious echogenic nodular foci with the largest measuring 4.0 x 3.0 x 4.9 cm. Left ovary/adnexa: Preserved flow to the left ovary. Multiple cysts within the left ovary some of which demonstrate either septations or apposition of cyst izquierdo. Urinary bladder: Urinary bladder is limited. Intraperitoneal space: No free fluid. US/US transvaginal [id number] IMPRESSION: 1. Unremarkable appearance of the uterus. Intrauterine device is present 2. Bilateral ovarian cystic changes that demonstrate an O rads 2 appearance. There is preserved flow to both ovaries. - Followed up with Dr. Arriaga thereafter with plans on possible endometrial ablation versus hysterectomy -Patient tells that for the last 24 hours, she continues to have heavy vaginal bleeding, with clots, feeling lightheaded, dizzy, -In the emergency room she was found to have a hemoglobin 7.9 pressure 110/66, pulse 102, respiratory 18, temperature 90.7, 98% on room air - I spoke to ER provider -I spoke to Dr. Rogel given patient is hemoglobin 7.9, plans on 2 units PRBC, discussed with Dr. Rogel that medicine can be consultants, help with hemodynamic support, transfusions as necessary I will do iron studies, Dr. Rogel was agreeable to be primary, will see patient in the morning -Will monitor hemodynamics closely tonight, Medications/Allergies Home Medications ?Medication ?Instructions ?Recorded ?Confirmed ?Last Taken ?Type propranolol 10 mg tablet 10 mg PO BID #60 tabs 08/09/24 09/27/24 Unknown Rx cyclobenzaprine 10 mg tablet 10 mg PO TID 09/26/24 09/27/24 Unknown History prednisone 20 mg tablet 80 mg PO QAM 09/26/24 09/27/24 Unknown History Allergies Allergy/AdvReac Type Severity Reaction Status Date / Time No Known Allergies Allergy Verified 09/28/24 17:57 PFSH Acute PFSH: Medical History Tendinitis of right forearm Positive Tinel's sign Fall at home 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 Lateral epicondylitis of right elbow Family History Grandmother Uterine cancer Ovarian cancer Diabetes Father Heart disease Diabetes Grandfather Diabetes Social History Smoking and tobacco/nicotine status: never used tobacco/nicotine Vitals/I&O/Wt Last Vital Signs Temp 98.7 F 09/28/24 21:29 Pulse 102 H 09/28/24 21:41 Resp 18 09/28/24 21:41 BP 110/66 09/28/24 21:41 Pulse Ox 98 09/28/24 21:41 O2 Del Method Room Air 09/28/24 21:01 09/28/24 09/28/24 09/28/24 06:59 14:59 22:59 Intake Total 0 / 0 Balance 0 / 0 Weight last 48 hrs Weight 77.111 kg Physical Exam Const: COMMON NORMALS: no acute distress and patient oriented x3 HENMT: COMMON NORMALS: normocephalic HEAD & SCALP: normocephalic Resp: COMMON NORMALS: normal respiratory effort, No retractions, No use of accessory muscles and clear to auscultation bilaterally AUSCULTATION: clear to auscultation bilaterally Cardio: COMMON NORMALS: regular rate, regular rhythm, S1 normal heart sound present and S2 normal heart sound present RATE: regular rate RHYTHM: regular rhythm HEART SOUNDS: S1 normal heart sound present and S2 normal heart sound present GI: COMMON NORMALS: Normal to inspection, nondistended, normoactive bowel sounds present and non-tender Extremity: COMMON NORMALS: no calf tenderness and no pedal edema Neuro: COMMON NORMALS: patient oriented x3 Psych: COMMON NORMALS: mental status grossly normal Data 09/28/24 20:03 09/28/24 18:24 A&P Assessment and plan (1) Abnormal uterine bleeding (AUB): Plan Abnormal uterine bleeding - With recent history of Mirena placement - Hemoglobin 7.9, will be transfused 2 units PRBC - Monitor hemodynamics closely - Will consider fluid therapy based on clinical progress - ECG ordered and it was less than 1 - Ultrasound ordered -UA ordered - Full code - SCDs for DVT prophylaxis PDMP PDMP Reviewed: Not Reviewed Consult Attestations Medical Necessity Statement: Patient requires hospitalization for abnormal uterine bleeding Diagnoses Abnormal uterine bleeding (AUB) N93.9
--- NOTE | 2024-09-28 22:30 | USR_ITS ---
PROCEDURE INFORMATION: Exam: US Pelvis, Complete, Non-Obstetric Exam date and time: 09/28/2024 11:45 PM Age: 44 years old Clinical indication: Other: Heavy vaginal bleeding ever since mirena iud was inserted 09/06/2024; Additional info: Vaginal bleeding, look at endometerium TECHNIQUE: Imaging protocol: Transabdominal pelvic nonobstetric ultrasound. Complete exam. Real time ultrasound with image documentation. COMPARISON: US transvaginal [id number] 09/26/2024 5:17 PM FINDINGS: Uterus: IUD in the uterine cavity. Right ovary/adnexa: Right ovary 5.2 cm cyst with color blood flow in the ovary, may be follicular. Left ovary/adnexa: Left ovary 3 cm cyst with color blood flow in the ovary may be follicular. Intraperitoneal space: No intraperitoneal fluid. Urinary bladder: Normal. US/US pelvic complete* [id number] IMPRESSION: 1. IUD in the uterine cavity. 2. Right ovary 5.2 cm cyst with color blood flow in the ovary, may be follicular. 3. Left ovary 3 cm cyst with color blood flow in the ovary may be follicular.
[2024-09-28 22:37] LABS: INR 0.95 (0.8-1.2)
--- NOTE | 2024-09-28 22:43 | PC.NURSE ---
Physician notification Dr. Rogel is primary physician, Dr. Wiseman is consulting. Dr. Rogel contacted for admit order. Pt to be admitted to OB without cardiac monitoring.
[2024-09-28 23:11] LABS: HCG Qualitative Urine. Negative (Negative)
[2024-09-28 23:11] LABS: Bilirubin Urine 1+ (Negative); Blood Urine 3+ (Negative); Glucose Urine UA Negative (Normal); Ketones Urine 1+ (Negative); Leukocyte Esterase Urine 1+ (Negative); Nitrate Urine Negative (Negative); Protein Urine 2+ (Negative); Specific Gravity, Urine 1.025 (1.005-1.030); Urine Appearance Turbid (CLEAR); Urine Color Dark Yellow (Yellow)
[2024-09-28 23:16] LABS: Add Urine Microscopic? YES; Bacteria Urine 3+ /hpf; Hyaline Casts Urine 0.78 /lpf; RBC Urine >100 /hpf (0-2); Squamous Epithelial Cell Urine 0-5 /hpf (0-5); WBC Urine 21-50 /hpf (0-5)
[2024-09-28 23:22] LABS: Add Urine Culture? Yes
[2024-09-28 23:43] LABS: Thyroid Stimulating Hormone 4.75 uIU/mL (0.27-4.20)
[2024-09-29] VITALS (9 sets, daily range): BP systolic 93–117; BP diastolic 57–76; PULSE 81–99; RESP 16–18; TEMP 36.7–36.9; O2SAT 97–99
[2024-09-29 00:33] LABS: Ferritin 28 ng/mL (15-150); Iron 71 ug/dL (37-145); Percent Saturation 18.2 % (20-50); Total Iron Binding Capacity 390 mcg/dl; Unsaturated Iron Binding 319 ug/dL (112-347)
--- NOTE | 2024-09-29 01:25 | PC.NURSE ---
First blood transfusion rates adjusted as follows: 2210 increased to 75 ml/hr 2214 increased to 100 ml/hr 2240 increased to 125 ml/hr 2253 increased to 150 ml/hr 2309 increased to 200 ml/hr 0015 increased to 225 ml/hr
[2024-09-29 04:47] LABS: Basophils % 0.3 %; Eosinophils # 0.3 10^3/uL (0.0-0.8); Eosinophils % 4.2 %; Hematocrit 29.7 % (36-47); Mean Corpuscular Hemoglobin 28.5 pg (27-33); Mean Corpuscular Volume 86.3 fl (85-98); Mean Platelet Volume 9.6 fL (7.4-10.4); Monocytes # 0.3 10^3/uL (0.2-0.9); Monocytes % 4.3 %; Neutrophils # 5.07 10^3/uL (1.8-7.7); Neutrophils % 64.7 %; Nucleated Red Blood Cells % 0 %; Platelet Count 138 10^3/cmm (157-399); Red Blood Count 3.44 10^6/uL (3.85-5.65); Red Cell Distribution Width 14.1 % (12.1-15.1); White Blood Count 7.84 10^3/uL (3.29-11.43)
[2024-09-29 05:04] LABS: Anion Gap 13.9 (5-19); Blood Urea Nitrogen 9 mg/dL (6-20); Calcium 7.8 mg/dL (8.5-10.5); Carbon Dioxide 21 mmol/L (22-29); Chloride 107 mmol/L (98-107); Creatinine Clr Calc Pharmacy 136.3274; Glomerular Filtration Rate 134.7 mL/min (90-130); Glucose 100 mg/dL (65-115); Lactic Sepsis W/Reflex 1.1 mmol/L (0.5-2.2); Osmolality Calculated 285 mOsm/kg (285-295); Potassium 3.9 mmol/L (3.5-5.1); Sodium 138 mmol/L (136-145)
--- NOTE | 2024-09-29 06:14 | PC.NURSE ---
Assisted patient with pericare at 2250, 0005, and 0430
--- NOTE | 2024-09-29 09:01 | P.HP_ITS ---
Providers/Chief Complaint 2 Admitting Physician: Ted Wiseman MD Primary METALLURGICAL LAB TECHNICIAN: Dr. Ramos Primary Care Provider: Lance Ospina DO Chief Complaint: vaginal bleeding since friday, high hr HPI METALLURGICAL LAB TECHNICIAN History of Present Illness Vika Cadena is a 44 year old female admitted after her second ER visit with abnormal uterine bleeding after having an IUD placed (Mirena). Patient states she is nearly passed out on numerous occasions, with fatigue and shortness of breath. Patient was tachycardic in her ER visit, it was noted that her hemoglobin had changed over the last several weeks from 12-7. Patient was transfused with 2 units of packed red cells with resulting hemoglobin of 9.8. She states the shortness of breath and the feeling of passing out and fatigue has all resolved. Options of waiting to see if current therapy will resolve the abnormal uterine bleeding probably due to her perimenopausal status versus removing the IUD and entertaining treatment options of endometrial ablation versus hysterectomy. I discussed endometrial ablation as a noninvasive procedure that ablates the endometrium so that if she continues to have a cycle it would be much less flow and fewer days. A hysterectomy was also discussed as a major surgical procedure with many possible complications. Patient elects to see Dr. Arriaga in the office to proceed with an endometrial ablation. Patient's lab also indicates a UTI, I reviewed antibiotics for 7 days with increased fluids. Patient understands Present Details Date of Last Menstrual Period: 08/30/24 Calculated Date of Delivery: 06/06/25 Gestational Age Based on Last Menstrual Period: 4 Review of Systems 2 General: Reports: 10 or more systems reviewed and unremarkable except in HPI and below Card: Reports: pre-syncope (Patient feels as if she would pass out) Medications/Allergies Allergies Allergy/AdvReac Type Severity Reaction Status Date / Time No Known Allergies Allergy Verified 09/29/24 00:19 PFSH METALLURGICAL LAB TECHNICIAN 2 PFSH: Medical History Tendinitis of right forearm Positive Tinel's sign Fall at home 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 Lateral epicondylitis of right elbow Family History Grandmother Uterine cancer Ovarian cancer Diabetes Father Heart disease Diabetes Grandfather Diabetes Social History Smoking and tobacco/nicotine status: never used tobacco/nicotine Other Female Reproductive History: Hx Age of Menarche: 16 Duration of menses: >10 days Menstrual flow: normal/abnormal: abnormal Personal Safety: Do you feel safe at home: Yes Victim of physical abuse: No Victim of emotional abuse: No Victim of sexual abuse: No Would you like help information on resources?: No History History History 2 4 Term 3 0 Miscarriages/Ectopic 1 Living Children 3 Vitals/I&O/Wt Last Vital Signs Temp 98.4 F 09/29/24 04:45 Pulse 85 09/29/24 04:45 Resp 17 09/29/24 04:45 BP 105/68 09/29/24 04:45 Pulse Ox 97 09/29/24 04:45 O2 Del Method Room Air 09/29/24 04:45 09/28/24 09/29/24 09/29/24 22:59 06:59 14:59 Intake Total 0 / 0 700 / 700 Output Total 150 / 150 350 / 500 Balance -150 / -150 350 / 200 Weight last 48 hrs Weight 77.111 kg Weight 77.111 kg Physical Exam 2 Narrative: 44-year-old female alert and orient x 3 no acute distress. HENMT: COMMON NORMALS: normocephalic and dentition normal Cardio: COMMON NORMALS: regular rate, regular rhythm and No murmurs present (Cardio) Back/Pelvis: COMMON NORMALS: no CVA tenderness OTHER: Sterile speculum exam reveals dark blood in the vaginal vault the cervix is visualized with an IUD string noted. The string was grasped with a ring forceps and was easily removed. No gross obvious bleeding resulted. Extremity: COMMON NORMALS: normal to inspection, no clubbing, cyanosis or edema and no calf tenderness Neuro: COMMON NORMALS: patient oriented x3, CN's II-XII intact bilaterally, moves all extremities and deep tendon reflexes 2+ bilaterally Data 09/29/24 04:30 09/29/24 04:30 Results Labs OB ([facility]): 2 Blood Type O Negative 09/28/24 Antibody Screen Negative 09/28/24 Hct 29.7 % (36-47) L 09/29/24 Hgb 9.80 g/dL (11.27-16.99) L 09/29/24 Rho(D) Type Rh negative 09/28/24 Plt Count 138 10^3/cmm (157-399) L 09/29/24 TSH 4.75 uIU/mL (0.27-4.20) H 09/28/24 FSH 9.1 mIU/mL 04/15/24 Total Estradiol 113.5 pg/mL 04/15/24 Ser , Semi-Qnt < 1.00 mIU/mL 09/28/24 HCG, Qual Negative (Negative) 09/28/24 Micro Urine Specimen 09/28/24 Pap Smear Interpret See note 09/06/24 Prolactin 11.81 ng/mL (4.8-23.3) 04/15/24 A&P Assessment and plan (1) Abnormal uterine bleeding (AUB): A. 1. S/p Mirena removal 2. Asymptomatic UTI Plan. Will discharge patient to home. Patient to follow-up with Dr. Arriaga for authorization and scheduling of endometrial ablation. Macrobid 100 mg twice daily (2) Perimenopausal: (3) Syncope: (4) Acute blood loss anemia: (5) Heavy periods: Qualifiers: Menorrhagia type: with regular cycle Qualified Code(s): N92.0 - Excessive and frequent menstruation with regular cycle PDMP PDMP Reviewed: Not Reviewed Attestations 2 Medical Necessity Statement*: Patient was admitted to the women's floor for transfusion of 2 units packed red blood cells for symptomatic acute blood loss. Coding Level of Care Code Acute Code for Chg Fwd Diagnoses Abnormal uterine bleeding (AUB) N93.9 Perimenopausal N95.1 Syncope R55 Acute blood loss anemia D62 Menorrhagia with regular cycle N92.0 Menorrhagia type: with regular cycle
--- NOTE | 2024-09-29 10:07 | PC.NURSE ---
09/29/24 0830 Time out performed at 0830. Patient placed in stirrups per physician request for IUD removal. RN remained at bedside throughout procedure. See physician procedural notes for details on removal.
--- NOTE | 2024-09-29 10:57 | P.PN_ITS ---
Subjective 2 Subjective: Without additional bleeding or clots on reassessment this morning. Yesterday was having some aches and pains which have resolved. She is almost back to her usual self. Vitals/I&O/Wt Last Vital Signs Temp 98.2 F 09/29/24 10:00 Pulse 96 09/29/24 10:00 Resp 16 09/29/24 10:00 BP 110/76 09/29/24 10:00 Pulse Ox 99 09/29/24 10:00 O2 Del Method Room Air 09/29/24 09:00 09/28/24 09/29/24 09/29/24 22:59 06:59 14:59 Intake Total 0 / 0 700 / 700 Output Total 150 / 150 350 / 500 Balance -150 / -150 350 / 200 Weight last 48 hrs Weight 77.111 kg Weight 77.111 kg Physical Exam 2 Narrative: Accompanied by her . Sitting up in bed. Const: COMMON NORMALS: patient oriented x3 and alert GENERAL APPEARANCE: c ooperative ORIENTATION/CONSCIOUSNESS: Yes awake HENMT: COMMON NORMALS: oropharynx normal Neck/C-Spine: COMMON NORMALS: no JVD Resp: COMMON NORMALS: normal respiratory effort and clear to auscultation bilaterally AUSCULTATION: clear to auscultation bilaterally Cardio: COMMON NORMALS: no JVD, regular rhythm, S1 normal heart sound present, S2 normal heart sound present and No murmurs present (Cardio) RHYTHM: regular rhythm HEART SOUNDS: S1 normal heart sound present and S2 normal heart sound present GI: COMMON NORMALS: Normal to inspection, nondistended, normoactive bowel sounds present, Soft to palpation and non-tender PALPATION: Yes Soft to palpation Extremity: COMMON NORMALS: no joint enlargement and no pedal edema Neuro: COMMON NORMALS: patient oriented x3 and moves all extremities S ENSORIUM/ORIENTATION: Yes alert Skin: COMMON NORMALS: no rashes or lesions noted GENERAL SKIN EXAM: no rashes or lesions noted Data 09/29/24 04:30 09/29/24 04:30 A&P Assessment and plan (1) Abnormal uterine bleeding (AUB): Following IUD placement. Hemoglobin down as low as 7.9. Received 2 units RBC transfusion with good response, hemoglobin up to 9.8. Feeling almost back to her usual self. Body aches she was having with active bleeding and acute anemia have resolved. Reviewed pelvic ultrasound. Discussed with gynecology obtaining follow-up blood counts as well as with her CBC on repeat with hemoglobin up to 9.8, platelets mildly decreased to 138, possibly dilutional with IV fluid bolus as well as RBC transfusion. She has not noticed any petechiae, rashes recently. No tick bites. No changes in medications. No febrile illness or other contributing factors. Discussed with nursing staff, repeat CBC will be called in to be requested for later today with repeat appointment with gynecology in office. Discussed also with her on follow-up call. She was assessed by gynecology and IUD removed. Subsequently was discharged home with follow-up in office. Discussed with her associated hematuria likely secondary to uterine bleeding, but discussed need for follow-up with PCP to ascertain resolution and if not resolved seeking additional urologic assessment, she verbalized understanding. She will schedule an appointment with her primary provider within the week. Plan Possible UTI: Reviewed UA, chemistry, hCG. Discussed with her , she had received a dose of Rocephin. Mild to moderate pyuria 21-50 WBC, although not symptomatic. Urine culture in process. At discharge she has received a prescription for nitrofurantoin. PDMP PDMP Reviewed: Not Reviewed Attestations 2 Medical Necessity Statement*: Was hospitalized due to abnormal uterine bleeding, acute anemia following IUD, incidentally found possible UTI. and High MDM includes amount and/or complexity of data reviewed/ordered [ resulted lab(s)/test(s)] and described risk of complication, morbidity or mortality of management as documented Diagnoses Abnormal uterine bleeding (AUB) N93.9
== END 2024-09-29 10:14 | disposition home or self-care (01) ==
LOC: ER 21:04 → OBGYN 21:37
PROVIDERS: Emergency Medicine; Admitting Provider Family Medicine; Emergency Provider Student in an Organized Health Care Education/Training Program; PCP Electrodiagnostic Medicine; Visit Provider Obstetrics & Gynecology
DX: N93.9 Abnormal uterine and vaginal bleeding, unspecified (principal); T83.39XA Other mechanical complication of intrauterine contraceptive device, initial encounter; R00.0 Tachycardia, unspecified; Z80.41 Family history of malignant neoplasm of ovary; Z80.49 Family history of malignant neoplasm of other genital organs; N95.9 Unspecified menopausal and perimenopausal disorder; R55 Syncope and collapse; N92.0 Excessive and frequent menstruation with regular cycle; N88.8 Other specified noninflammatory disorders of cervix uteri; F41.9 Anxiety disorder, unspecified; R31.9 Hematuria, unspecified
CPT/HCPCS: 36415; 36430; 76856; 80048; 80053; 81001; 81025; 82728; 83540; 83550; 83605; 84443; 84702; 85014; 85018; 85025; 85610; 86850; 86900; 86920; 87086; 93005; 99285; E0352; G0378; J0696; J7030; J9999; P9016

== ENCOUNTER → 2024-09-29 13:56 | Outpatient (BNVA) | payer BC, MEDICAID, SELFPAY | PROVIDERS: PCP Electrodiagnostic Medicine; Visit Provider Obstetrics & Gynecology | DX: N93.9 Abnormal uterine and vaginal bleeding, unspecified (principal); D62 Acute posthemorrhagic anemia | CPT/HCPCS: 85025 ==

== ENCOUNTER 2024-10-05 09:57 | Day surgery (SDC) | payer BC, MEDICAID, SELFPAY ==
[2024-10-05] VITALS (10 sets, daily range): BP systolic 89–131; BP diastolic 61–77; PULSE 71–99; RESP 16–17; TEMP 36.2–36.8; O2SAT 95–100; BMI 32.1
--- NOTE | 2024-10-05 01:17 | P.HP_ITS ---
Same Day Surgery H&P Indication for Procedure/HPI DATE OF PROCEDURE: October 05, 2024 CHIEF COMPLAINT/INDICATIONFOR SURGICAL PROCEDURE: abnormal uterine bleeding, menometrorrhagia PREOP DIAGNOSIS: abnormal uterine bleeding, menometrorrhagia PLANNED PROCEDURE: Operation Date: 10/05/24 11:20 Proposed Procedures p Hysteroscopy w/ Endometrial Sampling 68423, 87063, N93.9, D62(Not Applicable) - Richard Arriaga MD s possible endometrial polypectomy(Not Applicable) - Richard Arriaga MD s Endometriosis Cauterization Endometrial Ablation(Not Applicable) - Richard Arriaga MD 44 y.o. with heavy and prolonged periods had mirena IUD placed August 2024 had very heavy vaginal bleeding, required blood transfusions and removal of IUD now scheduled for hysteroscopy, endometrial sampling, possible endometrial polypectomy; endometrial ablation Medications/Allergies* Home Medications ?Medication ?Instructions ?Recorded ?Confirmed ?Type nitrofurantoin 100 mg PO 2XD 10/04/2410/04 History Allergies/Adverse Reactions Allergy/AdvReac Type Severity Reaction Status Date / Time No Known Allergies Allergy Verified 09/29/24 12:18 Pertinent History/Comorbid Conditions* Medical History (Updated 10/02/24 @ 09:52 by Richard Arriaga MD) Tendinitis of right forearm Positive Tinel's sign Fall at home 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
[2024-10-05 10:25] LABS: OR HCG Qualitative Urine Negative (Negative)
[2024-10-05] MEDS: sodium chloride 0.9% 1,000 ML 30 ML IV (10:33)
--- NOTE | 2024-10-05 10:46 | ANES.PREANE2 ---
Pre-Anesthetic Assessment Height/Weight: Height 5 ft 1 in Weight 170 lb Temp Pulse Resp BP Pulse Ox O2 Del Method 98.2 F 80 16 131/77 100 Room Air 10/05/24 10:17 10/05/24 10:17 10/05/24 10:17 10/05/24 10:17 10/05/24 10:17 10/05/24 10:17 Preop Diagnosis: menometrorrhagia Operation Date: 10/05/24 11:20 Proposed Procedures p Hysteroscopy w/ Endometrial Sampling 45221, 66450, N93.9, D62(Not Applicable) - Richard Arriaga MD s possible endometrial polypectomy(Not Applicable) - Richard Arriaga MD s Endometriosis Cauterization Endometrial Ablation(Not Applicable) - Richard Arriaga MD Was Beta Checo taken within 24 hours: N/A Was Clonidine taken within 24 hours: N/A Last intake: Intake Last Liquid Date 10/04/24 Last Liquid Time 21:00 Last Solid Date 10/04/24 Last Solid Time 21:00 Social No alcohol and No tobacco Exam alert, oriented x 3, clear to auscultation bilaterally and regular rate & rhythm Airway Submandibular: within normal limits Cervical ROM: within normal limits Mallampati: Class I Dentition: full Anesthetic Plan ASA status: 2 Anesthesia: General Other: No prior issues with anesthesia NPO since yesterday evening 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 Anemia noted. Hemoglobin 10.7 at that time METs greater than 4 Plan for general anesthesia Medications/Allergies Home Medications ?Medication ?Instructions ?Recorded ?Confirmed ?Last Taken ?Type nitrofurantoin 100 mg PO 2XD 10/04/24 10/04/24 10/04/24 History Allergies Allergy/AdvReac Type Severity Reaction Status Date / Time No Known Allergies Allergy Verified 09/29/24 12:18 Current Medications Generic Name Dose Route Start Last Admin Trade Name Freq PRN Reason Stop Dose Admin Sodium Chloride 1,000 mls @ 30 mls/hr 10/05/24 10:15 10/05/24 10:33 Sodium Chloride 0.9% IV 10/06/24 10:14 30 mls/hr .Q24H BITA Administration PFSH Anesthesia Medical History (Updated 10/02/24 @ 09:52 by Richard Arriaga MD) Tendinitis of right forearm Positive Tinel's sign Fall at home 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
--- NOTE | 2024-10-05 10:46 | W.PM.OPSUD ---
Surgery/Procedure H&P Update DATE OF PROCEDURE: October 05, 2024 DATE H&P PERFORMED: 09/29/24 H&P UPDATE INFORMATION: I have reviewed H&P completed within last 30 days, I have examined patient prior to procedure and No changes to prior documentation PREOP DIAGNOSIS: menometrorrhagia PLANNED PROCEDURE: Operation Date: 10/05/24 11:20 Proposed Procedures p Hysteroscopy w/ Endometrial Sampling 30829, 64351, N93.9, D62(Not Applicable) - Richard Arriaga MD s possible endometrial polypectomy(Not Applicable) - Richard Arriaga MD s Endometriosis Cauterization Endometrial Ablation(Not Applicable) - Richard Arriaga MD
--- NOTE | 2024-10-05 12:50 | P.OP_ITS ---
Operative Report Date of procedure: October 05, 2024 Pre-op diagnosis: abnormal uterine bleeding, menometrorrhagia Post-op diagnosis: same Post-op findings: Normal endometrial cavity No endometrial polyps or fibroids Minimal endometrial tissue Global endometrial ablation following procedure Procedure done: hysteroscopy curettage of uterus endometrial ablation with Novasure device Implants: none Specimens removed/disposition: endometrial curettings Surgeon: Richard Arriaga MD Anesthesia: MAC Estimated blood loss (mL): 0 Complications: none Findings: Normal endometrial cavity No endometrial polyps or fibroids Minimal endometrial tissue Global endometrial ablation following procedure Condition: stable Disposition: PACU Brief History: 44 y.o. with history heavy and prolonged menstrual bleeding Procedure: Informed consent was obtained. The patient was taken to the OR and placed on the table. General endotracheal a nesthesia was induced. The patient was then placed in dorsolithotomy position. The perineum were then prepped and draped in the usual fashion. A speculum was placed in the vagina. The anterior lip of the cervix was grasped with a sharp-toothed tenaculum. The uterus was sounded to 8 cm. The cervix was serially dilated with Hegar dilators. . A hysteroscope was placed into the endometrial cavity. The endometrial cavity was seen to be normal. There were no polyps or fibroids. There was minimal endometrial tissue. The hysteroscope was then removed. Endometrial curettage was done with a sharp curette. Endometrial tissue was sent to pathology. The Novasure device was then primed and inserted into the endometrial cavity. The cervical occlusion sleeve was advanced. Cavity integrity test was done. The device was activated for 60 seconds. The Novasure device was then removed. Repeat hysteroscopy showed an intact endometrial cavity with adequate global endometrial ablation. All instruments were then removed. The sharp-toothed tenaculum was removed. There was no bleeding from the endometrial cavity or cervix. The patient was then placed supine and awakened and taken to the PACU. Postop condition: stable EBL: 5 cc Sponge and instruments counts were normal x 2 Complications: none
--- NOTE | 2024-10-05 14:04 | ANE.PACU2 ---
Inpatient post-anesthesia follow up: Airway intact: Yes Vital signs: Temperature 97.8 F Pulse Rate 71 Respiratory Rate 17 Blood Pressure 99/72 Pulse Oximetry 96 Oxygen Delivery Me thod Room Air Oxygen Flow Rate 8 Fraction of Inspir ed Oxygen Hydration adequate: Yes Nausea and vomiting: No Pain level: 1 Mental status: Baseline
== END 2024-10-05 14:04 | disposition home or self-care (01) ==
PROVIDERS: PCP Electrodiagnostic Medicine; Visit Provider Obstetrics & Gynecology
PROC: 0UJD8ZZ Inspection of Uterus and Cervix, Via Natural or Artificial Opening Endoscopic (ICD-10-PCS; CPT 58555; principal; 2024-10-05 11:20)
PROC: (CPT 58999; 2024-10-05 11:20)
PROC: (CPT 58120; 2024-10-05 11:20)
DX: N92.1 Excessive and frequent menstruation with irregular cycle (principal); D62 Acute posthemorrhagic anemia
CPT/HCPCS: 58563; 81025; 88305; A4216; J0131; J1100; J1885; J2250; J2405; J2704; J3010; J3490; J7030

== ENCOUNTER 2024-10-28 09:10 | Outpatient (CLI) | payer BC, MEDICAID, SELFPAY ==
--- NOTE | 2024-10-28 09:20 | MM_ITS ---
WS: [id number] BILATERAL 3D TOMOSYNTHESIS DIGITAL SCREENING MAMMOGRAM WITH CAD CLINICAL INFORMATION: Z12.39 - Encounter for other screening for malignant neop... HISTORY: Screening mammogram. No current complaints. COMPARISON: Baseline TECHNIQUE: Bilateral CC and MLO. FINDINGS: The breast are composed of extremely dense tissue, which can limit the detection of small underlying mass lesions. No suspicious focal mass, asymmetry, calcifications, or architectural distortion. No evidence of malignancy. A few incidental punctate calcifications. MM/MM [facility] tomosynthesis [id number] IMPRESSION: DENSITY: The breasts are extremely dense, which lowers the sensitivity of mammo graphy. BI-RADS: 2 - Benign FOLLOW UP: 1 Year Follow-up Recommend return to annual screening mammography.
== END 2024-10-28 09:11 | disposition home or self-care (01) ==
PROVIDERS: PCP Electrodiagnostic Medicine; Visit Provider Obstetrics & Gynecology
DX: Z12.31 Encounter for screening mammogram for malignant neoplasm of breast (principal); R92.343 Mammographic extreme density, bilateral breasts; R92.1 Mammographic calcification found on diagnostic imaging of breast
CPT/HCPCS: 77063; 77067